=== PATIENT | male | born 1940 | race Caucasian/White ===

== ENCOUNTER 2022-08-15 11:54 | Emergency (ER) | payer MEDICARE, SELFPAY ==
--- NOTE | ~2022-08-15 | XR_ITS ---
EXAMINATION: XR KNEE, LEFT CLINICAL INFORMATION: Status post twist then fall injury COMPARISON: None TECHNIQUE: Four views of the left knee. FINDINGS: Marked chondrocalcinosis of the medial and lateral compartments. Vascular calcifications. No fracture, dislocation, or joint effusion. XR/XR knee LT 4V IMPRESSION: No acute osseous abnormality.
[2022-08-15 12:30] VITALS: BP 129/49; PULSE 70; RESP 18; TEMP 36.5; O2SAT 98; BMI 25.8
--- NOTE | 2022-08-15 12:31 | ED.EXTPRO ---
HPI - Extremity Problem General Chief complaint: Extremity Injury, Lower <DEREK Del Rio - Last Filed: 08/15/22 12:34> Stated complaint: L knee inj <DEREK Del Rio - Last Filed: 08/15/22 12:34> Time Seen by Provider: 08/15/22 13:49 <DEREK Del Rio - Last Filed: 08/15/22 12:34> Source: patient <Kendra Morejon NP - Last Filed: 08/15/22 14:57> Mode of arrival: ambulatory <Kendra Morejon NP - Last Filed: 08/15/22 14:57> Limitations: physical limitation <Kendra Morejon NP - Last Filed: 08/15/22 14:57> History of Present Illness HPI Narrative: 82-year-old male with a past medical history of hypertension presents to the emergency department today, with his daughter, after twisting his left knee today getting out of the car. He is unsure of whether or not he hit the knee or if he fell to the ground. He states the pain was so severe became nauseous and does not remember what happened immediately after twisting the knee. He describes the pain as severe and aching, 10/10. He denies any immediate bruising, deformity, or popping sound. He denies any numbness, tingling, or weakness in the left lower extremity. <Kendra Morejon NP - Last Filed: 08/15/22 14:57> MD Complaint: extremity pain <Kendra Morejon NP - Last Filed: 08/15/22 14:57> Onset (ago): hour(s) (2) <Kendra Morejon NP - Last Filed: 08/15/22 14:57> Pain Consistency: constant <Kendra Morejon NP - Last Filed: 08/15/22 14:57> Location: left and lower extremity <Kendra Morejon NP - Last Filed: 08/15/22 14:57> Severity scale (1-10): 10 <Kendra Morejon NP - Last Filed: 08/15/22 14:57> Quality: aching <Kendra Morejon NP - Last Filed: 08/15/22 14:57> Radiation: none <Kendra Morejon NP - Last Filed: 08/15/22 14:57> Relieving factors: nothing <Kendra Morejon NP - Last Filed: 08/15/22 14:57> Exacerbating factors: range of motion and weight bearing <Kendra Morejon NP - Last Filed: 08/15/22 14:57> Associated symptoms: denies other symptoms <Kendra Morejon NP - Last Filed: 08/15/22 14:57> Related Data Home medications: Previous Rx's Medication Instructions Recorded cyclobenzaprine 5 mg tablet 5 mg PO TID PRN muscle spasm #14 08/15/22 tabs lidocaine 4 % topical patch 1 patch topical TID PRN pain #15 ea 08/15/22 naproxen 500 mg tablet 500 mg PO BID PRN pain #30 tabs 08/15/22 <DEREK Del Rio - Last Filed: 08/15/22 12:34> Allergies/Adverse reactions: Allergies Allergy/AdvReac Type Severity Reaction Status Date / Time No Known Allergies Allergy Verified 08/15/22 12:31 <DEREK Del Rio - Last Filed: 08/15/22 12:34> Review of Systems Review of Systems: In addition to documented HPI above, the additional ROS was obtained: Constitutional: No Weight loss, No Fever, No Chills ENT/Mouth: No Ear Pain, No Nasal Congestion, No Sinus Pain, No Hoarseness, No sore throat, No Rhinorrhea, No Swallowing Difficulty Cardiovascular: No Chest Pain, No SOB Respiratory: No Cough, No Sputum, No Wheezing Gastrointestinal: No Nausea, No Vomiting, No Diarrhea, No Constipation, No Abdominal pain Musculoskeletal: No joint pain, No Myalgias, No Joint Swelling Skin: No Skin Lesions, No rash Neuro: No Weakness, No Numbness, No Paresthesias <Kendra Morejon NP - Last Filed: 08/15/22 14:57> Yes all other systems are reviewed and are negative <Kendra Morejon NP - Last Filed: 08/15/22 14:57> [facility] Past Medical History Attestation statement: The following information was validated with the patient. <Kendra Morejon NP - Last Filed: 08/15/22 14:57> Source: old records reviewed <Kendra Morejon NP - Last Filed: 08/15/22 14:57> Social History Social History: Social History Advance Directives: Yes Advance Directives Information Provided: Yes Advance Directives on File: No <DEREK Del Rio - Last Filed: 08/15/22 12:34> Physical Exam Vital Signs: Vital Signs: Last Vital Signs Temp 97.7 F 08/15/22 12:30 Pulse 70 08/15/22 12:30 Resp 18 08/15/22 12:30 BP 129/49 L 08/15/22 12:30 Pulse Ox 98 08/15/22 12:30 O2 Del Method 08/15/22 12:30 BMI result Body Mass Index 25.8 <DEREK Del Rio - Last Filed: 08/15/22 12:34> Vital Signs: Last Vital Signs Temp 97.7 F 08/15/22 12:30 Pulse 70 08/15/22 12:30 Resp 18 08/15/22 12:30 BP 129/49 L 08/15/22 12:30 Pulse Ox 98 08/15/22 12:30 O2 Del Method 08/15/22 12:30 BMI result Body Mass Index 25.8 <Kendra Morejon NP - Last Filed: 08/15/22 14:57> Const: General: cooperative, alert and awake <Kendra Morejon NP - Last Filed: 08/15/22 14:57> Nutritional Appearance: well nourished <Kendra Morejon NP - Last Filed: 08/15/22 14:57> Orientation/consciousness: patient oriented x3 <Kendra Morejon NP - Last Filed: 08/15/22 14:57> Limitations: behavioral limitations <Kendra Morejon NP - Last Filed: 08/15/22 14:57> HEENT: Head: Yes normal to inspection and Yes atraumatic <Kendra Morejon NP - Last Filed: 08/15/22 14:57> Ears: external ears normal and other (Hard of hearing) <Kendra Morejon [employer]UM[employer] SIDING INSTALLER - Last Filed: 08/15/22 14:57> Mouth: Normal oral and palatal mucosa present <Kendra Morejon [employer] SIDING INST[employer]ER - Last Filed: 08/15/22 14:57> Eyes: General: appearance normal, both eyes and all related structures <Kendra Morejon [employer] S[employer]ING INST[employer]ER - Last Filed: 08/15/22 14:57> Visual Elizondo: normal visual elizondo by confrontation <Kendra Morejon [employer]UM[employer] S[employer]ING INSTALLER - Last Filed: 08/15/22 14:57> Alignment and Position: alignment normal <Kendra Morejon [employer]UM[employer] SIDING INSTALLER - Last Filed: 08/15/22 14:57> Periorbital: periorbital findings normal <Kendra Morejon [employer] S[employer]ING INSTALLER - Last Filed: 08/15/22 14:57> Eyelids: Yes eyelids normal <Kendra Morejon [employer]UM[employer] SIDING INSTALLER - Last Filed: 08/15/22 14:57> Conjunctivae: conjunctivae normal <Kendra Morejon ALUM[employer] SIDING INSTALLER - Last Filed: 08/15/22 14:57> Sclerae: sclerae normal <Kendra Morejon [employer] SIDING INSTALLER - Last Filed: 08/15/22 14:57> Corneas: corneas normal <Kendra Morejon [employer] SIDING INSTALLER - Last Filed: 08/15/22 14:57> Pupils: Equal, round and reactive pupils present <Kendra Morejon [employer] SIDING INST[employer]ER - Last Filed: 08/15/22 14:57> EOM: EOMs intact bilaterally <Kendra Morejon [employer] SIDING INSTALLER - Last Filed: 08/15/22 14:57> Neck: Neck: Yes normal visual inspection and Yes full ROM <Kendra Morejon [employer] SIDING INSTALLER - Last Filed: 08/15/22 14:57> Chest: Chest palpation & inspection: normal inspection of the chest <Kendra Morejon [employer] SIDING INSTALLER - Last Filed: 08/15/22 14:57> Resp: Effort & Inspection: normal respiratory effort and not labored <Kendra Morejon [employer] S[employer]ING INST[employer]ER - Last Filed: 08/15/22 14:57> Auscultation: clear to auscultation bilaterally, no crackles, no rhonchi and no wheezes <Kendra Jean-Pierre, [employer]ING INSTALLER - Last Filed: 08/15/22 14:57> Cardio: Rate: regular rate <Kendra Jean-Pierre, [employer] S[employer]ING INSTALLER - Last Filed: 08/15/22 14:57> Rhythm: regular rhythm <Kendra Plucbobby, [employer]ING INSTALLER - Last Filed: 08/15/22 14:57> Back/Spine/Pelvis: Cervical Spine: cervical ROM normal <Kendra Plucbobby, [employer] S[employer]ING INST[employer]ER - Last Filed: 08/15/22 14:57> Thoracic/Lumbar Spine: thoraco-lumbar ROM normal <Kendra Plucienitz, [employer] S[employer]ING INSTALLER - Last Filed: 08/15/22 14:57> Skin: General skin exam: no rashes or lesions noted, no ecchymosis, no erythema and no fluctuance <Kendra Plucbobby, AL[employer] SIDING INSTALLER - Last Filed: 08/15/22 14:57> Neuro: General: patient oriented x3, tone normal and moves all extremities <Kendra Plarden, AL[employer] SIDING INSTALLER - Last Filed: 08/15/22 14:57> Cranial nerves: Yes Equal, round and reactive pupils present <Kendra Plarden, [employer] SIDING INSTALLER - Last Filed: 08/15/22 14:57> Cognition (Neuro): normal cognition <Kendra Plarden, AL[employer] SIDING INSTALLER - Last Filed: 08/15/22 14:57> Gait exam (Neuro): Antalgic gait present <Kendra Plarden, AL[employer] SIDING INSTALLER - Last Filed: 08/15/22 14:57> Motor exam (neuro): 5/5 motor strength present throughout <Kendra Pluciennik, AL[employer] SIDING INSTALLER - Last Filed: 08/15/22 14:57> Extrem: General: Yes normal to inspection, Yes full ROM and Yes capillary refill normal <Kendra Plucbobby, ALUM[employer] SIDING INSTALLER - Last Filed: 08/15/22 14:57> Left lower extremity: normal to inspection, normal capillary refill and knee Details: tenderness (left lateral/posterior) and abnormal ROM Details: pain with active ROM <Kendra Plarden, AL[employer]IN[employer] SIDING INSTALLER - Last Filed: 08/15/22 14:57> Course Course Course Narrative: RME- 12:35PM - 82yoM presenting to the ED with complaints of left knee pain at the lateral aspect that started prior to arrival. Reports that he injured that knee x 3 months ago where he fell down a ladder although did not have surgery. Then today when he was getting out of his truck he felt a pain and the pain made him fall onto his left knee and since then his pain has been worse. He reports he cannot bend it and it is difficult to walk on. He denies head injury loss of consciousness or any other injuries complaints or concerns at this time. Plan: Patient is stable to be sent back to the waiting room to be evaluated [facility]. Left knee x-ray ordered at this time. <DEREK Del Rio - Last Filed: 08/15/22 12:34> Medications Administered Discontinued Medications Generic Name Dose Route Start Last Admin Trade Name Freq PRN Reason Stop Dose Admin Ketorolac Tromethamine 15 mg 08/15/22 14:25 08/15/22 14:46 Ketorolac Tromethamine 15 Mg/Ml Vial IM 08/15/22 14:26 15 mg ONCE ONE Administration <DEREK Del Rio - Last Filed: 08/15/22 12:34> Medications Administered Discontinued Medications Generic Name Dose Route Start Last Admin Trade Name Freq PRN Reason Stop Dose Admin Ketorolac Tromethamine 15 mg 08/15/22 14:25 08/15/22 14:46 Ketorolac Tromethamine 15 Mg/Ml Vial IM 08/15/22 14:26 15 mg ONCE ONE Administration <Kendra Morejon NP - Last Filed: 08/15/22 14:57> Medical Decision Making Medical Decision Making [facility] Narrative: 82-year-old male with a past medical history of hypertension presents to the emergency department today, with his daughter, after twisting his left knee today getting out of the car. X-ray left knee with no acute osseous abnormality, marked chondrocalcinosis of the medial and lateral compartments, vascular calcifications, no fracture, dislocation, or joint effusion. Physical exam with no swelling, erythema, or ecchymosis noted. Decreased range of motion in left knee due to pain. IM Toradol given with moderate relief in discomfort. Knee wrapped in [place] wrap for compression and ice pack provided. HPI, PE, diagnostics, and plan discussed with patient and his daughter with no unanswered questions at this time. Educated to return to the emergency department with numbness, weakness, tingling, worsening pain, fever, erythema, warmth or any other concerning emergent symptom. Recommended follow-up with his primary care provider and call center specialist for further treatment and management. <Kendra Morejon NP - Last Filed: 08/15/22 14:57> Discharge Plan Discharge Clinical Impression: Fall, Knee pain, left <DEREK Del Rio - Last Filed: 08/15/22 12:34> Patient Disposition: Home, Self-Care <DEREK Del Rio - Last Filed: 08/15/22 12:34> Instructions: Knee Pain (ED), Heat Pack Application (ED), Fall Prevention (ED) <DEREK Del Rio - Last Filed: 08/15/22 12:34> Prescriptions: New lidocaine 4 % adhesive patch,medicated 1 patch topical TID PRN (Reason: pain) Qty: 15 0RF naproxen 500 mg tablet 500 mg PO BID PRN (Reason: pain) Qty: 30 0RF cyclobenzaprine 5 mg tablet 5 mg PO TID PRN (Reason: muscle spasm) Qty: 14 0RF <DEREK Del Rio - Last Filed: 08/15/22 12:34> Referrals: [facility] [place] Family Medicine [Provider Group] [facility] [place] Primary [facility] [Provider Group] [facility] [place] [facility] [Provider Group] <DEREK Del Rio - Last Filed: 08/15/22 12:34> Print Language: Indonesian <DEREK Del Rio - Last Filed: 08/15/22 12:34>
[2022-08-15] MEDS: Ketorolac Tromethamine 15 MG/ML VIAL IM (14:46)
--- NOTE | 2022-08-15 14:59 | PC.NURSE ---
gave pt cratches and ac wrapped. He asked to take ac wrap home because his daughter who is a nurse had already put one on
== END 2022-08-15 15:12 | disposition home or self-care (01) ==
PROVIDERS: Emergency Provider Emergency Medicine
DX: S80.912A Unspecified superficial injury of left knee, initial encounter (principal); W01.10XA Fall on same level from slipping, tripping and stumbling with subsequent striking against unspecified object, initial encounter; Y93.9 Activity, unspecified; Y92.810 Car as the place of occurrence of the external cause; Y99.9 Unspecified external cause status
CPT/HCPCS: 73564; 96372; 99283; 99284; J1885